=== PATIENT | male | born 1985 | race Caucasian/White ===

== ENCOUNTER 2020-07-04 17:00 | Emergency (ER) | payer OTHER, SELFPAY ==
[2020-07-04 17:07] VITALS: BP 137/84; PULSE 97; RESP 18; TEMP 36.6; O2SAT 97; BMI 27.3
--- NOTE | 2020-07-04 17:13 | CT_ITS ---
PROCEDURE: CT ABDOMEN PELVIS WO CON CLINICAL INDICATION: right flank pain, painful urination COMPARISON: No exams were available for comparison TECHNIQUE: Axial images obtained with sagittal and coronal reformats. All CT scans at the facility use one or more dose reduction, viz: automated exposure control, ma/kV adjustment per patient size (including targeted exams where dose is matched to indication, i.e. head), or iterative reconstruction technique. FINDINGS: LOWER THORAX: There is a 3.7 cm bulla in the right middle lobe. ABDOMEN & PELVIS: The liver, spleen, adrenal glands, pancreas, and kidneys have an unremarkable appearance. No renal or ureteral calculi. No hydronephrosis. Unremarkable appearing appendix. No intestinal obstruction or free air. There is blackburn colonic diverticulosis. No evidence of diverticulitis. There is mild urinary bladder wall thickening. Osteoarthritic changes are present in the hips. IMPRESSION: 1. No renal or ureteral calculi. 2. Extensive colonic diverticulosis without diverticulitis 3. Mild urinary bladder wall thickening which could be due to nondistention or cystitis. 4. Right middle lobe bulla Dictated by: Williams Roa MD 07/05/2020 06:14 Williams Roa MD in [place] 07/05/2020 06:14
--- NOTE | 2020-07-04 17:16 | HMH.EDUROGM ---
ED Disposition Clinical Impression: Dysuria Disposition: Home, Self-Care Condition on Discharge: Good Instructions: DI for Dysuria -- Adult Prescriptions: Nitrofurantoin Monohyd/M-Cryst [Macrobid 100 mg Capsule] 100 mg PO BID #10 cap Prescription Printed Referrals: PCP,Elida [Primary Care Provider] - 3 days Kalyan Tariq MD [Staff Physician] - 3 days - Critical Care Critical Care Time: No Attestation: On , the high probability of a clinically significant, sudden or life threatening deterioration of the following system(s) required my full and direct attention, intervention and personal management. The time I documented below is in addition to time spent performing reported procedures but includes the following listed in this critical care notation. Medical Decision Making - Medical Records Medical records reviewed: Yes: I reviewed the patient's medical records. - Jorden Inquiry Pt receiving controlled substance: No Vital Signs: 07/04/20 17:07 07/04/20 18:04 Temperature 97.8 F Temperature Source Oral Pulse Rate [Right Radial] 97 H 75 Respiratory Rate 18 Blood Pressure [Right Arm] 137/84 136/83 Blood Pressure Mean [Right Arm] 101 100 Blood Pressure Source [Right Arm] Automatic Cuff Automatic Cuff Blood Pressure Position [Right Arm] Sitting Sitting 02 Sat by Pulse Oximetry 97 96 Oxygen Delivery Method Room Air Room Air - Lab Data Lab Results 07/04/20 17:15: Urine Color Yellow, Urine Appearance Clear, Urine pH 8.0, Ur Specific Cement 1.020, Urine Protein Negative, Urine Glucose (UA) Negative, Urine Ketones Negative, Urine Blood Negative, Urine Nitrate Negative, Urine Bilirubin Negative, Urine Urobilinogen 0.2, Ur Leukocyte Esterase Negative, Urine RBC 3-5, Urine WBC 3-5, Ur Squamous Epith Cells Occasional, Urine Bacteria None 07/04/20 17:27: WBC 10.2, RBC 5.88, Hgb 17.0, Hct 50.1, MCV 85.3, MCH 28.9, MCHC 33.9, RDW 13.4, Plt Count 224, MPV 8.8, Neut % (Auto) 66.1, Lymph % (Auto) 23.5, [place] % (Auto) 7.0, Eos % (Auto) 2.4, Baso % (Auto) 1.0, Neut # (Auto) 6.7, Lymph # (Auto) 2.4, [place] # (Auto) 0.7, Eos # (Auto) 0.2, Baso # (Auto) 0.1 07/04/20 17:27: Sodium 143, Potassium 4.3, Chloride 108 H, Carbon Dioxide 26, Anion Gap 13.3, BUN 13, Creatinine 1.10, Estimated Creat Clear 135, Estimated GFR 76, Est GFR ( Amer) 92, Glucose 92, Calcium 10.0 Result diagrams: 07/04/20 17:27 07/04/20 17:27 Orders (Tests/Meds): ED MEDICATIONS Generic Name Dose Route Start Last Admin Trade Name Freq PRN Reason Stop Dose Admin Sodium Chloride 1,000 mls @ 999 mls/hr 07/04/20 17:15 07/04/20 17:30 Sod Chlor 0.9% 1000ml Bag IV 07/04/20 18:15 999 mls/hr .[id number] KRISHNA Administration Discontinued Medications Generic Name Dose Route Start Last Admin Trade Name Freq PRN Reason Stop Dose Admin Ketorolac Tromethamine 30 mg 07/04/20 17:14 07/04/20 17:30 Ketorolac 30mg/Ml Vial IV 07/04/20 17:15 30 mg ONCE ONE Administration ORDERS Category Date Time Status CT abdomen pelvis wo con Stat Cat Scan 07/04/20 17:13 Taken - CT Data CT Scan: Abdomen, Pelvis Time Received: 18:10 Findings Narrative: Bladder wall thickening, no nephrolithiasis, no appendicitis, bulla in the right middle lobe of the lung, diverticulosis without diverticulitis present Medical Decision Narrative: Patient here with suprapubic abdominal pain that radiates to his right flank. Creatinine within normal limits. CT scan shows no evidence of nephrolithiasis but does show mild bladder wall thickening. However, his urinalysis does not really suggest a UTI. Will place on a few days of Macrobid empirically and have him follow-up with primary care provider within the next several days for reevaluation. Other considerations would be prostatitis, interstitial cystitis. Male Urogenital HPI - General Stated complaint: Stomach pain Time Seen by Provider: 07/04/20 17:16 Source of Information: Patient Limitations: No White
--- NOTE | 2020-07-04 17:19 | PC.NURSE ---
notified rad of CT order, spoke with Fern
[2020-07-04 17:21] LABS: Microscopic, Urine URINE MICROSCOPIC (MICROSCOPIC)
[2020-07-04 17:22] LABS: Appearance,Urine CLEAR (Clear); Bilirubin,Urine Negative (Negative); Blood, Urine Negative (Negative); Color,Urine YELLOW (Yellow); Glucose,Urine (UA) Negative (Negative); Ketones,Urine Negative (Negative); Leukocyte Esterase,Urine Negative (Negative); Nitrate,Urine Negative (Negative); Protein,Urine Negative (Negative); Urobilinogen,Urine 0.2 EU/dl (0.2)
[2020-07-04 17:37] LABS: Basophils # 0.1 K/mm3 (0-0.2); Eosinophils # 0.2 K/mm3 (0.0-0.4); Eosinophils % 2.4 % (0.1-12.0); Hematocrit 50.1 % (42.0-52.0); Lymphocytes # 2.4 K/mm3 (0.7-4.5); Lymphocytes % 23.5 % (10-50); Mean Corpuscular HGB Conc 33.9 g/dL (31.8-35.4); Mean Corpuscular Hemoglobin 28.9 pg (27.0-31.2); Mean Corpuscular Volume 85.3 fl (80-94); Mean Platelet Volume 8.8 fl (7.4-10.4); Monocytes # 0.7 K/mm3 (0.1-1.0); Neutrophils # 6.7 K/mm3 (1.8-7.8); Neutrophils % 66.1 % (37.0-80.0); Platelet Count 224 K/mm3 (142-424); Red Blood Count 5.88 M/mm3 (4.60-6.20); Red Cell Distribution Width 13.4 % (11.5-17.5); White Blood Count 10.2 K/mm3 (4.8-10.8)
[2020-07-04 17:45] LABS: Squamous Epithelial Cell,Urine Occasional #/hpf (0-5)
[2020-07-04 17:46] LABS: Anion Gap 13.3 mEq/L (5-15); Blood Urea Nitrogen 13 mg/dl (9-20); Carbon Dioxide 26 mmol/L (22.0-30.0); Chloride 108 mmol/L (98-107); Creatinine Clearance Estimated 135 mL/min (50-200); Estimated Glomerular Filt Rate 76 ml/min (>60); GFR (African American) 92 ML/MIN (>60); Glucose 92 mg/dl (74-100); Potassium 4.3 mmoL/L (3.5-5.1); Sodium 143 mmol/L (136-145)
[2020-07-04 18:04] VITALS: BP 136/83; PULSE 75; O2SAT 96
[2020-07-04 18:30] VITALS: BP 140/84; PULSE 89; RESP 18; TEMP 36.6; O2SAT 96
== END 2020-07-04 18:30 | disposition home or self-care (01) ==
PROVIDERS: Emergency Provider Emergency Medicine
DX: R30.0 Dysuria (principal)
CPT/HCPCS: 74176; 80048; 81001; 85025; 96365; 96375; 99283

== ENCOUNTER → 2021-04-29 03:17 | Outpatient (CLI) | payer OTHER, SELFPAY | PROVIDERS: Visit Provider Emergency Medicine | DX: Z11.52 Encounter for screening for COVID-19 (principal); R50.9 Fever, unspecified | CPT/HCPCS: U0003 ==

== ENCOUNTER 2021-05-26 11:27 | Emergency (ER) | payer OTHER, BC, SELFPAY ==
[2021-05-26 12:41] VITALS: BP 130/90; PULSE 71; RESP 19; TEMP 36.9; O2SAT 98; BMI 30.4
--- NOTE | 2021-05-26 13:04 | HMH.EDUTC ---
[facility] [place] Clinical Impression: Sinusitis Qualifiers: Sinusitis location: unspecified location Chronicity: unspecified Qualified Code(s): J32.9 - Chronic sinusitis, unspecified Disposition: Home, Self-Care Condition on Discharge: Good Instructions: Sinusitis, DI for Sinusitis, DI for COVID-19 (Suspected or Confirmed ), Preventing the Spread of Coronavirus Discharge Instructions Additional Instructions: *Monitor Temp, Over the counter Motrin or Tylenol as directed/as needed Tylenol every 4 hours and Motrin every 6 hours (as long as your family doctor has told you that you can take it) for fever or pain. and straight to ER if unable to lower temp less than 101.0 after medication given *Warm salt water gargles may help to soothe the throat *Throat Lozenges *Warm fluids like tea with honey may help to soothe the throat *Sleep elevated *Humidifier/Vaporizer Follow up IMMEDIATELY for new or worsening symptoms or no Noticeable improvement over the next 48-72 hours. 911 for difficulty breathing or swallowing You were tested for today for COVID19 your test result should be back in the next 24-48 hours, You was given handout for instructions to log onto the [facility] Portal to view your result if you are unable to log on you may call You was given a handout with instructions for Self Quarantine and Self isolation for while you wait on test results and what to do if they are positive If you are positive the Health Dept will be contacting you also Make sure to take your Vitamins Vit. C Vit D and Zinc if you can take them Prescriptions: methylPREDNISolone [Medrol 4mg tab] 4 mg PO DIRECTED #21 tab Transmission Status: Pending to [facility] Azithromycin [Z-Cal 250mg Tab] 250 mg PO DIRECTED #6 tab Transmission Status: Pending to [facility] Referrals: Provider,Referral, MD [Primary Care Provider] - As needed Forms: Work/School Release Time of Disposition: 13:07 Medical Decision Making - Jorden Inquiry Pt receiving controlled substance: No Jorden was queried for this patient: No Vital Signs: 05/26/21 12:41 Temperature 98.4 F Temperature Source Oral Pulse Rate [Right Brachial] 71 Respiratory Rate 19 Blood Pressure [Right Arm] 130/90 Blood Pressure Mean [Right Arm] 103 Blood Pressure Source [Right Arm] Automatic Cuff Blood Pressure Position [Right Arm] Sitting 02 Sat by Pulse Oximetry 98 Oxygen Delivery Method Room Air [facility] [place] - General Stated complaint: covid test /wkness, aches, vomiting, headache Time Seen by Provider: 05/26/21 13:04 Mode of Arrival: Ambulatory Source of Information: Patient Description of Symptoms (Recalled from Triage Doc. by RN): vomiting, headache, sinus pressure HEENT Symptoms (Recalled from RN notes): Yes Resp Symptoms (Recalled from RN notes): Yes Skin Symptoms (Recalled from RN notes): No MS Symptoms (Recalled from RN notes): No Functional Status (Recalled from RN notes): yes - History of Present Illness Provider Complaint: Patient states that he has been having sinus pressure and congestion along with scratchy throat and last night he vomited x 1 from the drainage in the back of his throat States that he feels like he may have a sinus infection but wants to get tested for COVID - Related Data Previous Rx's Medication Instructions Recorded Azithromycin [Z-Cal 250mg Tab] 250 mg PO DIRECTED #6 tab 05/26/21 methylPREDNISolone [Medrol 4mg 4 mg PO DIRECTED #21 tab 05/26/21 tab] Allergies Allergy/AdvReac Type Severity Reaction Status Date / Time No Known Allergies Allergy Verified 07/04/20 17:18 - Worker's Comp Is this a Worker's Comp case?: No Is this an [facility] Worker's Comp?: No Is this a [place] Worker's Comp?: No [facility] History - Hepatitis A Screen Drug use history?: No High risk sexual behaviors?: No History of sexually transmitted infection?: No Currently employed?: No Childcare worker?: No Do you have indoor
[2021-05-26 13:27] VITALS: BP 130/90; PULSE 71; RESP 19; TEMP 36.9; O2SAT 98
== END 2021-05-26 13:27 | disposition home or self-care (01) ==
PROVIDERS: Emergency Provider Nurse Practitioner
DX: J32.9 Chronic sinusitis, unspecified (principal); Z20.822 Contact with and (suspected) exposure to COVID-19
CPT/HCPCS: 99202; C9803; G0463; U0003; U0005